=== PATIENT | female | born 1945 | race Caucasian/White ===

== ENCOUNTER → 2019-03-03 | Outpatient (CLI) | payer MEDICARE, OTHER ==
--- NOTE | 2019-03-04 12:57 | CR ---
DATE OF SERVICE: 03/03/2019 CLINICAL DATA: Pleurodynia. PA CHEST AND RIGHT RIBS: Comparison is made to a prior PA and lateral chest dated 04/14/2017. The heart is mildly enlarged. There is calcification of the aortic arch. There are emphysematous changes throughout both lungs. There are fibrotic changes of the left mid lung. The lungs are otherwise clear. No pneumothorax. No pleural effusion. There is diffuse osteopenia of the bony thorax. No displaced rib fractures. There is degenerative disc disease throughout the thoracic spine. [id number] [facility]
== END ==
LOC: LB.CLINIC 13:24
PROVIDERS: ATTEND Family Medicine
DX: R07.81 Pleurodynia (principal); I51.7 Cardiomegaly; I70.0 Atherosclerosis of aorta; J43.9 Emphysema, unspecified; J84.10 Pulmonary fibrosis, unspecified; M85.80 Other specified disorders of bone density and structure, unspecified site; M51.34 Other intervertebral disc degeneration, thoracic region
CPT/HCPCS: 71101-RT

== ENCOUNTER → 2019-04-20 | Outpatient (CLI) | payer MEDICARE | LOC: LB.LAB 12:04 | PROVIDERS: ATTEND Internal Medicine | DX: Z51.81 Encounter for therapeutic drug level monitoring (principal); I48.0 Paroxysmal atrial fibrillation; I63.40 Cerebral infarction due to embolism of unspecified cerebral artery; Z79.01 Long term (current) use of anticoagulants | CPT/HCPCS: 85610 ==